=== PATIENT | male | born 1930 | race Caucasian/White ===

== ENCOUNTER 2017-03-19 15:26 | Emergency (ER) | payer OTHER ==
[~2017-03-19] VITALS: Ht 172.7 cm; Wt 81.4 kg
[2017-03-19] MEDS ORDERED: FLUORESCEIN OPHTHALMIC 1 MG STRIP ONE (16:19)
[2017-03-19] MEDS ORDERED: PROPARACAINE OPHTH 0.5%, 15ML ONE (16:19)
[2017-03-19 16:41] LABS: DIFF TOTAL CELLS COUNTED 100 CELL DIFF
[2017-03-19 16:49] LABS: VERIFY COUNTS? YES
[2017-03-19 16:50] LABS: ANISOCYTOSIS 2+
[2017-03-19 16:51] LABS: POIKILOCYTOSIS 1+
[2017-03-19 17:21] LABS: ASPARTATE AMINO TRANSFERASE 26 U/L (15-37); BLOOD UREA NITROGEN 21 mg/dL (7-18)
[2017-03-19] MEDS ORDERED: APIX5TAB PO (17:23)
[2017-03-19] MEDS ORDERED: METO25TA35 PO (17:24)
[2017-03-19] MEDS ORDERED: MEMA28CA PO (17:26)
[2017-03-19] MEDS ORDERED: GALA8CAP PO (17:28)
[2017-03-19] MEDS ORDERED: ATOR20TA9 PO (17:29)
[2017-03-19] MEDS ORDERED: SODIUM CHLORIDE 0.9% 500 ML IV ONE (18:24)
[2017-03-19 20:03] VITALS: BP 132/77
== END 2017-03-19 21:33 | disposition home or self-care (01) ==
LOC: ED 16:05
DX: H11.32 Conjunctival hemorrhage, left eye (principal); D61.818 Other pancytopenia; E78.00 Pure hypercholesterolemia, unspecified; I10 Essential (primary) hypertension; Z87.891 Personal history of nicotine dependence; D50.0 Iron deficiency anemia secondary to blood loss (chronic); D72.819 Decreased white blood cell count, unspecified; D69.49 Other primary thrombocytopenia; H11.422 Conjunctival edema, left eye; I48.91 Unspecified atrial fibrillation
CPT/HCPCS: 36415; 80053; 81001; 85025; 85610; 96360; 96361; 99285; J7030